=== PATIENT | female | born 1980 | race Caucasian/White ===

== ENCOUNTER 2016-10-28 05:35 | Emergency (ER) | payer MEDICAID ==
[~2016-10-28] VITALS: Ht 160 cm; Wt 73.0 kg
[2016-10-28 05:50] VITALS: Ht 160 cm; Wt 73.0 kg
--- NOTE | 2016-10-28 08:17 | RADRPT ---
PROCEDURE: Nonvascular ultrasound. CLINICAL INDICATION: Right axillary palpable lump TECHNIQUE: Real time andujar-scale ultrasound imaging of the right axillary region COMPARISON: None. FINDINGS: Subcutaneous area of lipomas change correspond with the region of palpable lump. No internal vascul arity. There does appear to be internal complexity. The mass measures grossly 5.4 the centimeters in greatest dimension. No abnormal fluid collection or other cyst or solid sonographic abnormality. IMPRESSION: 5.4 cm subcutaneous lipoma this lesion with some internal complexity. No associated vascularity. C T or MRI is recommended for further evaluation. RPTAT:AAJJ Jayjay Kuhn Physician Date Time Electronically viewed and signed by Physician Lewis on 10/28/2016 08:17 GAGANDEEP/
--- NOTE | 2016-10-28 09:45 | ERD ---
ER Documentation Chief Complaint Date/Time DATE: 10/28/16 TIME: 09:39 Chief Complaint Bump under her right armpit HPI 36-year-old female patient with no significant past medical history presents to the ED as a presenting with a bump/lump under her right armpit that she has noticed since 3 weeks ago. Reports that it is slightly painful. Denies any fever, redness, nausea, vomiting, chest pain, shortness of breath, loss of sensation, loss of range of motion, numbness or tingling. States that her last menses was on May 31, 2016. Reports that her [employer] ASSEMBLER is Dr. Martínez. Denies any vaginal bleeding, vaginal discharge, dysuria, urgency, frequency. ROS All systems reviewed and are negative except as per history of present illness. Allergies Allergies: Coded Allergies: No Known Allergy (Unverified , 10/28/16) PMhx/Soc Medical and Surgical Hx: pt denies Medical Hx, pt denies Surgical Hx Hx Alcohol Use: No Hx Substance Use: No Hx Tobacco Use: No Smoking Status: Never smoker Physical Exam Vitals Vital Signs Date Time Temp Pulse Resp B/P Pulse Ox O2 Delivery O2 Flow Rate FiO2 10/28/16 05:50 98.4 111 16 116/58 100 Physical Exam Const: Bwo-tiq-lrphryson, well-nourished. In no acute distress. Head: Atraumatic, normocephalic Eyes: Normal Conjunctiva without injection. No purulent discharge. PERRL. EOMI ENT: Normal external ear, nose, mouth. No drooling. No trismus. Neck: Full range of motion. No meningismus. No cervical lymphadenopathy. Resp: Clear to auscultation bilaterally. No wheezing, rhonchi, rales, or crackles. No accessory muscle use. No retractions. Cardio: Regular rate and rhythm. No murmurs, rubs or gallops. Abd: Soft, non tender, non distended. Normal bowel sounds. No palpable masses. No rebound tenderness. No guarding. Skin: No petechiae or rashes Back: No midline tenderness. No CVA tenderness. Axilla: Left axilla normal. Right axilla with a 5 cm edematous region, non- erythematous. No warmth to touch. No fluctuance or induration. No lymphatic streaking. Ext: No cyanosis, or edema. Neur: Awake and alert. Psych: Normal Mood and Affect Procedures/MDM 36-year-old female patient who is a presents to the ED complaining of a bump that she is noted under her right armpit since 3 weeks ago. Patient is afebrile nontoxic appearing. An ultrasound of the right axilla was ordered to further evaluate this edematous region. Patient denied wanting any pain medications. PROCEDURE: Nonvascular ultrasound. CLINICAL INDICATION: Right axillary palpable lump TECHNIQUE: Real time andujar-scale ultrasound imaging of the right axillary region COMPARISON: None. FINDINGS: Subcutaneous area of lipomas change correspond with the region of palpable lump. No internal vascularity. There does appear to be internal complexity. The mass measures grossly 5.4 the centimeters in greatest dimension. No abnormal fluid collection or other cyst or solid sonographic abnormality. IMPRESSION: 5.4 cm subcutaneous lipoma this lesion with some internal complexity. No associated vascularity. CT or MRI is recommended for further evaluation. Patient has a 5. 4 subcutaneous lipoma in the right axillary region. No abnormal fluid collection was noted. Low suspicion for abscess, deep space infection, cysts, scabies, SJS/TEN, erythema multiforme, sepsis, cellulitis, necrotizing fascitis, fractures, dislocation, gangrene, meningococcemia or other emergent conditions. Follow up with primary care physician in 1-2 days for further evaluation and treatment from a network development coordinator/general surgeon. MRI on outpatient basis is recommended. Instructed patient to return to the ED sooner for any worsening symptoms. Patient's questions were answered. Patient understood and agreed with discharge plan. Patient discharged stable. Departure Diagnosis: Primary Impression: Lipoma of axilla Condition: Stable Patient Instructions: Lipoma Referrals: COMMUNITY CLINICS YOU HAVE RECEIVED A MEDICAL SCREENING EXAM AND THE RESULTS INDICATE THAT YOU DO NOT HAVE A CONDITION THAT REQUIRES URGENT TREATMENT IN THE EMERGENCY DEPARTMENT. FURTHER EVALUATION AND TREATMENT OF YOUR CONDITION CAN WAIT UNTIL YOU ARE SEEN IN YOUR DOCTORS OFFICE WITHIN THE NEXT 1-2 DAYS. IT IS YOUR RESPONSIBILITY TO MAKE AN APPOINTMENT FOR FOLOW-UP CARE. IF YOU HAVE A PRIMARY DOCTOR --you should call your primary doctor and schedule an appointment IF YOU DO NOT HAVE A PRIMARY DOCTOR YOU CAN CALL OUR PHYSICIAN REFERRAL HOTLINE AT IF YOU CAN NOT AFFORD TO SEE A PHYSICIAN YOU CAN CHOSE FROM THE FOLLOWING COMMUNITY CLINICS [facility] [address] [facility] [address] [facility] [address] [facility] [address] [facility] [phone] [facility]. [facility] [address] [facility]. [facility] YOU HAVE RECEIVED A MEDICAL SCREENING EXAM AND THE RESULTS INDICATE THAT YOU DO NOT HAVE A CONDITION THAT REQUIRES URGENT TREATMENT IN THE EMERGENCY DEPARTMENT. FURTHER EVALUATION AND TREATMENT OF YOUR CONDITION CAN WAIT UNTIL YOU ARE SEEN IN YOUR DOCTORS OFFICE WITHIN THE NEXT 1-2 DAYS. IT IS YOUR RESPONSIBILITY TO MAKE AN APPOINTMENT FOR FOLOW-UP CARE. IF YOU HAVE A PRIMARY DOCTOR --you should call your primary doctor and schedule and appointment IF YOU DO NOT HAVE A PRIMARY DOCTOR YOU CAN CALL OUR PHYSICIAN REFERRAL HOTLINE AT . IF YOU CAN NOT AFFORD TO SEE A PHYSICIAN YOU CAN CHOSE FROM THE FOLLOWING [facility] INSTITUTIONS: [facility] [address] [place] [address] [facility] [address] [place] [address] [facility] [address] [place] [address] [facility] URGENT CARE/SPECIALTIES [employer] [address] [facility] [address] [place], [place] [id number] OFFICE FAX JULISA GUTIÉRREZ [address] [place] [address] [address] ESQUIVEL [address] [address] [place], [place] [id number] [place] [address] [facility], [address], [facility] [address] [address] [address] [place] [address] [facility] [address] [place], [place] [id number] [address] [facility] [id number] - DR HAYNES, [place] [address] [facility] [address] [address]IEGO, [place] [address] [facility]. [address], [facility] [address] [address] MELENDEZ, FAR[place] [address] [place] [address] [facility] Hours: 8:00 am - 5:00 pm Additional Instructions: Seguimiento con senior mdico de atencin primaria para la derivacin a un especialista (cirujano dermatlogo general) para evaluacin adicional y tratamiento. con kirit posible proyeccin de imagen de resonancia magntica. Regrese a estas instalaciones si no se mejora dae esperbamos o dae prashant escoto. MARIETTA MOLINA PA-C Oct 28, 2016 09:45
== END 2016-10-28 09:03 | disposition home or self-care (01) ==
LOC: FTE 05:35
DX: O99.89 Other specified diseases and conditions complicating pregnancy, childbirth and the puerperium (principal); D17.21 Benign lipomatous neoplasm of skin and subcutaneous tissue of right arm; R22.31 Localized swelling, mass and lump, right upper limb
CPT/HCPCS: 76536